=== PATIENT | female | born 1995 | race Caucasian/White ===

== ENCOUNTER 2022-02-15 01:24 | Inpatient (IN) | payer OTHER ==
[2022-02-15 01:44] VITALS: BMI 29.4
[2022-02-15] MEDS ORDERED: Penicillin G Potassium 5 MILL.UNITS VIAL ONE (02:00)
[2022-02-15] MEDS: Lactated Ringer's 1,000 ML IV SCH ×3 (02:10→10:43)
[2022-02-15 02:30] LABS: Hemoglobin 11.6 g/dL (12.0-15.5); Mean Corpuscular HGB CONC 34.7 g/dL (32.0-36.0); Mean Corpuscular Hemoglobin 31.3 pg (27.0-33.0); Mean Platelet Volume 12.9 fl (7.4-10.4); Platelet Count 175 10x3/uL (150-450); RBC Distribution Width 13.6 % (11.5-14.5); Red Blood Cell (RBC) Count 3.71 10x6/uL (3.90-5.03)
[2022-02-15] MEDS ORDERED: Penicillin G Potassium 5 MILL.UNITS in Sodium Chloride 0.9% 100 ML IVPB SCH (02:30)
[2022-02-15 02:54] LABS: Syphilis Antibody Nonreactive (Nonreactive); Syphilis Antibody Index 0.09 S/CO (<1.00 Non-Reactive)
[2022-02-15 03:12] LABS: Hep B Surf Ag Non-Reactive S/CO (NonReactive)
[2022-02-15 03:14] LABS: SARS-CoV-2 NAA Rapid Test Not Detected (NotDetected)
[2022-02-15 03:16] LABS: HBSAg Index 0.21 S/CO (0-0.99)
[2022-02-15] MEDS ORDERED: Misoprostol 100 MCG TAB VAG PRN (03:29)
[2022-02-15] MEDS ORDERED: NS w/ Oxytocin 30 units 500 ML IVPB SCH (03:30)
[2022-02-15] MEDS ORDERED: Methylergonovine 0.2 MG/ML VIAL IM PRN (03:30)
[2022-02-15] MEDS ORDERED: NS w/ Oxytocin 30 units 500 ML IV SCH (03:30)
[2022-02-15] MEDS ORDERED: Ondansetron PF 4 MG/2 ML Vial IVP PRN ×3 (03:30→12:39)
[2022-02-15] MEDS ORDERED: Misoprostol 200 MCG TAB RC PRN (03:30)
[2022-02-15] MEDS ORDERED: hydrALAZINE 20 MG/ML VIAL SLOW IVP PRN ×2 (03:30→12:39)
[2022-02-15] MEDS ORDERED: Lidocaine 1% (PF) 30 ML VIAL SC PRN (03:30)
[2022-02-15] MEDS ORDERED: Promethazine HCl 25 MG/ML VIAL IM PRN ×3 (03:30→12:39)
[2022-02-15] MEDS ORDERED: Acetaminophen 500 MG TAB PO PRN (03:30)
[2022-02-15] MEDS ORDERED: Ibuprofen 800 MG TAB PO PRN (03:30)
[2022-02-15] MEDS ORDERED: Butorphanol Tartrate 1 MG/ML VIAL SLOW IVP PRN (03:30)
[2022-02-15] MEDS ORDERED: Carboprost 250 MCG/ML AMP IM PRN (03:30)
[2022-02-15] MEDS ORDERED: Diphenoxylate HCl/Atropine Tablet PO PRN (03:30)
[2022-02-15] MEDS: Penicillin G 2.5 MILL.units 2.5 MILL.UNITS in Premix Bag 1 BAG IVPB SCH ×2 (06:01→10:19)
[2022-02-15] MEDS ORDERED: Bupivacaine 0.25% HCL 30 ML VIAL ONE (07:00)
[2022-02-15] MEDS ORDERED: Fentanyl 2 mcg/Bup 0.1% Cadd 100 ML ONE (07:01)
[2022-02-15] MEDS ORDERED: diphenhydrAMINE 50 MG/ML VIAL IVP PRN (07:30)
[2022-02-15] MEDS ORDERED: Lactated Ringer's 500 ML IV PRN (07:30)
[2022-02-15] MEDS ORDERED: Acetaminophen 325 MG TAB PO PRN (07:30)
[2022-02-15] MEDS ORDERED: Moisturizing Cream (Eucerin) 113 GM JAR TOP PRN (07:30)
[2022-02-15] MEDS ORDERED: Fentanyl 2 mcg/Bupivacaine 0.1% Cassette 100 ML EPIDURAL SCH (07:30)
[2022-02-15] MEDS ORDERED: ePHEDrine Sulfate 50 MG/10 ML VIAL SLOW IVP PRN (07:30)
[2022-02-15] MEDS ORDERED: Communication Order-Pharmacy FS SCH (07:30)
[2022-02-15] MEDS ORDERED: Naloxone HCl 0.4 mg/ml Vial IVP PRN ×2 (07:30)
[2022-02-15] MEDS ORDERED: Lidocaine 1% (PF) 30 ML VIAL ONE (12:11)
[2022-02-15] MEDS ORDERED: Milk Of Magnesia 30 ML UDCUP PO PRN (12:39)
[2022-02-15] MEDS ORDERED: HYDROcodone/Acetaminophen 5/325 mg Tablet PO PRN ×2 (12:39)
[2022-02-15] MEDS ORDERED: diphenhydrAMINE 25 MG CAP PO PRN (12:39)
[2022-02-15] MEDS ORDERED: Benzocaine-Menthol 82.5 ML CAN TOP PRN (12:39)
[2022-02-15] MEDS ORDERED: Boostrix 0.5 ML (Tdap) VIAL IM ONE (12:39)
[2022-02-15] MEDS ORDERED: Bisacodyl 10 MG SUPP PR PRN (12:39)
[2022-02-15] MEDS ORDERED: Lanolin Ointment 7 GM TUBE TOP PRN (12:39)
[2022-02-15] MEDS: Ibuprofen 800 MG TAB PO SCH ×2 (15:03→21:23)
[2022-02-15] MEDS: Ferrous Sulfate 325 MG TAB PO SCH (16:24)
[2022-02-15] MEDS: Docusate 100 MG CAP PO SCH (21:23)
[2022-02-16] MEDS: Ibuprofen 800 MG TAB PO SCH ×2 (05:38→14:43)
[2022-02-16] MEDS: Ferrous Sulfate 325 MG TAB PO SCH (08:24)
[2022-02-16] MEDS: Docusate 100 MG CAP PO SCH (08:27)
[2022-02-16] MEDS ORDERED: Prenatal Vitamin 1 TAB PO SCH (09:00)
[2022-02-16 11:42] VITALS: BP 117/59; TEMP 98.3
== END 2022-02-16 14:45 | disposition home or self-care (01) | DRG 807 ==
LOC: CSHLD/OP 01:24 → CSHLD 01:36 → CSHPED 14:10
PROVIDERS: ADMIT Family Medicine; ATTEND Family Medicine
PROC: 10E0XZZ Delivery of Products of Conception, External Approach (ICD-10-PCS; principal; 2022-02-15)
PROC: 0KQM0ZZ Repair Perineum Muscle, Open Approach (ICD-10-PCS; 2022-02-15)
DX: O42.02 Full-term premature rupture of membranes, onset of labor within 24 hours of rupture (principal); Z37.0 Single live birth; O99.824 Streptococcus B carrier state complicating childbirth; Z3A.39 39 weeks gestation of pregnancy; Z20.822 Contact with and (suspected) exposure to COVID-19; O70.1 Second degree perineal laceration during delivery
CPT/HCPCS: 36415; 51702; 85027; 86780; 86850; 86900; 86901; 87340; 99285; J2001; J2405; J2540; J2590; J7120; S0020; U0002